=== PATIENT | female | born 1960 | race American Indian/Alaskan Native ===

== ENCOUNTER 2017-07-03 15:59 | Emergency (ER) | payer MEDICAID ==
[2017-07-03 16:42] VITALS: TEMP 98.2; O2SAT 98
--- NOTE | 2017-07-03 17:08 | ED PDOC ---
Arrival/HPI <Toan Cordova - Last Filed: 07/03/17 18:39> - History of Present Illness Time/Duration: < week Symptom Onset: Sudden Symptom Course: Unchanged Activities at Onset: Rest Context: Home <Boyd Jacinto - Last Filed: 07/03/17 18:48> - General Chief Complaint: Cough, Cold, Congestion Time Seen by Provider: 07/03/17 16:20 - History of Present Illness Narrative History of Present Illness (Text): 07/03/17 17:02 56yo F with no PMH presents with a "feeling of falling" x2 days. pt denies chest pain, sob, n/v/d, fevers/chills, urinary/bowel changes . pt states that she has family members who have been diagnosed with vertigo, but she has not had these problems. pt gives example of sitting a non-moving car and feeling that she is moving. pt denies unstable gait. PMD is Dr. Allen but patient has not seen doctor before. pt smokes 1/2 pk tobacco per day, etoh or substance abuse. (Boyd Jacinto) Past Medical History - Provider Review Nursing Documentation Reviewed: Yes - Past History Past History: No Previous - Infectious Disease Hx of Infectious Diseases: None - Reproductive Menopause: Yes - Past Medical History Past Medical History: No Previous - Cardiac Hx Cardiac Disorders: No - Pulmonary Hx Respiratory Disorders: No - Neurological Hx Neurological Disorder: No - HEENT Hx HEENT Disorder: No - Renal Hx Renal Disorder: No - Endocrine/Metabolic Hx Endocrine Disorders: No - Hematological/Oncological Hx Blood Disorders: No - Integumentary Hx Dermatological Disorder: No - Musculoskeletal/Rheumatological Hx Musculoskeletal Disorders: No - Gastrointestinal Hx Gastrointestinal Disorders: No - Genitourinary/Gynecological Hx Genitourinary Disorders: No - Psychiatric Hx Psychophysiologic Disorder: No Hx Substance Use: No - Past Surgical History Past Surgical History: No Previous - Anesthesia Hx Anesthesia: No <Boyd Jacinto - Last Filed: 07/03/17 18:48> Family/Social History - Physician Review Nursing Documentation Reviewed: Yes Family/Social History: No Known Family HX Smoking Status: Unknown If Ever Smoked Hx Alcohol Use: No Hx Substance Use: No <Boyd Jacinto - Last Filed: 07/03/17 18:48> Allergies/Home Meds <Toan Cordova - Last Filed: 07/03/17 18:39> <Boyd Jacinto - Last Filed: 07/03/17 18:48> Allergies/Adverse Reactions: Allergies No Known Allergies Allergy (Verified 07/03/17 16:40) Review of Systems - Physician Review All systems were reviewed & negative as marked: Yes - Review of Systems Respiratory: absent: SOB Cardiovascular: absent: Chest Pain, Syncope Gastrointestinal: absent: Abdominal Pain Genitourinary Female: absent: Dysuria Musculoskeletal: absent: Neck Pain Neurological: Other (feeling of falling). absent: Headache, Dizziness, Focal Weakness, Gait Changes, Facial Droop <Boyd Jacinto - Last Filed: 07/03/17 18:48> Physical Exam Vital Signs Reviewed: Yes Appearance: Positive for: Well-Appearing Pain Distress: None Mental Status: Positive for: Alert and Oriented X 3 - Systems Exam Head: Present: Atraumatic, Normocephalic Pupils: Present: PERRL Extroacular Muscles: Present: EOMI Conjunctiva: Present: Normal Mouth: Present: Moist Mucous Membranes Neck: Present: Normal Range of Motion Respiratory/Chest: Present: Clear to Auscultation, Good Air Exchange Cardiovascular: Present: Regular Rate and Rhythm, Normal S1, S2 Abdomen: Present: Normal Bowel Sounds. No: Tenderness, Distention Upper Extremity: Present: Normal Inspection, Normal ROM, Neurovascularly Intact. No: Edema Lower Extremity: Present: Normal Inspection, NORMAL PULSES, Normal ROM, Neurovascularly Intact. No: Edema Neurological: Present: CN II-XII Intact, Speech Normal, Motor Func Grossly Intact, Normal Sensory Function, Normal Cerebellar Funct, Gait Normal Skin: Present: Warm, Dry Psychiatric: Present: Alert, Oriented x 3 <Boyd Jacinto - Last Filed: 07/03/17 18:48> Vital Signs Temp Pulse Resp BP Pulse Ox 07/03/17 17:12 69 18 122/71 98 07/03/17 16:41 98.2 F 72 18 124/75 98 Medical Decision Making - RAD Interpretation Wrapping Machine Tender: Radiologist <Toan Cordova - Last Filed: 07/03/17 18:39> Re-evaluation Time: 18:46 Reassessment Condition: Re-examined, Improved - Lab Interpretations I have reviewed the lab results: Yes - RAD Interpretation Wrapping Machine Tender: Radiologist - EKG Interpretation Interpreted by ED Physician: Yes Type: 12 lead EKG <Boyd Jacinto - Last Filed: 07/03/17 18:48> ED Course and Treatment: 07/03/17 17:55 Seen and examined with the resident. Our history and physical exam reveals a woman who complains of not feeling right and feeling off balance for the last several days. No headache. No numbness tingling or paresthesias. No focal weakness. No nausea or vomiting. No head trauma. No neck pain. No true vertigo. Her exam including neurological exam is within normal limits. 07/03/17 18:21 EKG shows normal sinus rhythm rate approximately [address] or T-wave changes (Toan Cordova) 07/03/17 17:11 Impression: 56yo F presenting with neurological symptoms x2 days Plan: -CT head - EKG - Labs Progress: 07/03/17 18:29 EKG shows NSR @[address] or T-wave changes 07/03/17 18:46 CT head was unremarkable as read by me Reassessment: pt doing well and offering no complaints. Lab and urine findings were explained to her and she was told that she would be contacted if urine cultures findings are alarming. otherwise, pt is medically stable, ambulating well and cleared for d/c (Boyd Jacinto) - Lab Interpretations Lab Results: 07/03/17 17:15 07/03/17 17:15 Lab Results 07/03/17 17:15: Sodium 141, Potassium 4.1, Chloride 104, Carbon Dioxide 26, Anion Gap 15, BUN 17, Creatinine 0.8, Est GFR ( Amer) > 60, Est GFR (Non- Af Amer) > 60, Random Glucose 107, Calcium 9.9, Phosphorus 3.9, Magnesium 2.1, Total Bilirubin 0.8, AST 22, ALT 34, Alkaline Phosphatase 115, Lactate Dehydrogenase 438, Total Creatine Kinase 157, Troponin I < 0.01, Total Protein 8.4 H, Albumin 4.8, Globulin 3.6, Albumin/Globulin Ratio 1.3 07/03/17 17:15: WBC 9.9, RBC 4.15, Hgb 12.4, Hct 37.8, MCV 91.1, MCH 29.9, MCHC 32.8, RDW 14.2, Plt Count 322, MPV 10.1, Gran % 51.4, Lymph % (Auto) 39.0 H, [place] % (Auto) 5.5, Eos % (Auto) 3.9, Baso % (Auto) 0.2, Gran # 5.07, Lymph # 3.9 H, [place] # 0.5, Eos # 0.4, Baso # 0.02 07/03/17 16:59: Urine Color Yellow, Urine Appearance Sl cloudy, Urine pH 6.0, Ur Specific Circle 1.020, Urine Protein Negative, Urine Glucose (UA) Negative, Urine Ketones Negative, Urine Blood Negative, Urine Nitrate Positive H, Urine Bilirubin Negative, Urine Urobilinogen 0.2, Ur Leukocyte Esterase Small H, Urine RBC 0 - 2, Urine WBC 10 - 15, Ur Epithelial Cells 1 - 3, Urine Bacteria Many - RAD Interpretation Radiology Orders: 07/03/17 17:00 HEAD W/O CONTRAST [CT] Stat CT scan of the head as read by the radiologist shows no acute findings. ( Toan Cordova) Disposition/Present on Arrival - Present on Arrival Any Indicators Present on Arrival: No History of DVT/PE: No History of Uncontrolled Diabetes: No Urinary Catheter: No History of Decub. Ulcer: No - Disposition Have Diagnosis and Disposition been Completed?: Yes Disposition Time: 18:40 Patient Plan: Discharge <Toan Cordova - Last Filed: 07/03/17 18:39> - Present on Arrival Any Indicators Present on Arrival: No History of DVT/PE: No History of Uncontrolled Diabetes: No Urinary Catheter: No History of Decub. Ulcer: No History Surgical Site Infection Following: None - Disposition Have Diagnosis and Disposition been Completed?: Yes <Boyd Jacinto - Last Filed: 07/03/17 18:48> - Disposition Diagnosis: UTI (urinary tract infection), Dizziness Patient Problems: Current Active Problems Problem Status Onset Dizziness Acute UTI (urinary tract infection) Acute Condition: GOOD Discharge Instructions (ExitCare): Urinary Tract Infection in Women (ED), Dizziness (ED) Additional Instructions: Follow-up with your PMD. Follow-up in the ER as needed. Urine culture is pending. Prescriptions: Sulfamethoxazole/Trimethoprim [Bactrim DS 800 mg-160 mg] 1 tab PO BID #6 tab Referrals: PCP,NO [Primary Care Provider] - Follow up with primary Alejandro,Sridevi, MD [Staff Provider] - Follow up with primary Forms: [employer] (Polish)
[2017-07-03 17:25] LABS: BASO # 0.02 K/mm3 (0.0-2.0); BASO % 0.2 % (0.0-3.0); EOS # 0.4 (0.0-0.7); EOS % 3.9 % (1.5-5.0); GRAN # 5.07 (1.4-6.5); GRAN % 51.4 % (50.0-68.0); HEMATOCRIT 37.8 % (36.0-48.0); LYMPH # 3.9 (1.2-3.4); MEAN CELL VOLUME 91.1 fl (80.0-105.0); MEAN CORPUSCULAR HEMOGLOBIN 29.9 pg (25.0-35.0); MEAN CORPUSCULAR HGB CONC 32.8 g/dl (31.0-37.0); MEAN PLATELET VOLUME 10.1 fl (7.0-11.0); MONO # 0.5 (0.1-0.6); MONO % 5.5 % (1.0-6.0); RED CELL DISTRIBUTION WIDTH 14.2 % (11.5-14.5); WHITE BLOOD COUNT 9.9 10^3/ul (4.5-11.0)
[2017-07-03 17:34] LABS: ALB/GLOB RATIO 1.3 (1.1-1.8); ALKALINE PHOSPHATASE 115 U/L (38-126); ALT/SGPT 34 U/L (7-56); AST/SGOT 22 U/L (14-36); BILIRUBIN,TOTAL 0.8 mg/dL (0.2-1.3); BLOOD UREA NITROGEN 17 mg/dL (7-21); CALCIUM 9.9 mg/dL (8.4-10.5); CARBON DIOXIDE 26 mmol/L (21-33); CHLORIDE 104 mmol/L (98-107); GFR AFRICAN-AMERICAN > 60; GLUCOSE,RANDOM 107 mg/dL (70-110); MAGNESIUM 2.1 mg/dL (1.7-2.2); PHOSPHOROUS 3.9 mg/dL (2.5-4.5); POTASSIUM 4.1 mmol/L (3.6-5.0); SODIUM 141 mmol/L (132-148); TOTAL PROTEIN 8.4 g/dL (5.8-8.3)
[2017-07-03 17:46] LABS: TROPONIN I < 0.01 ng/mL
[2017-07-03 17:49] LABS: URINE BILIRUBIN NEGATIVE (NEGATIVE); URINE BLOOD NEGATIVE (NEGATIVE); URINE GLUCOSE (UA) NEGATIVE (NEGATIVE); URINE KETONE NEGATIVE (NEGATIVE); URINE LEUKOCYTE ESTERASE SMALL Leu/uL (NEGATIVE); URINE PROTEIN NEGATIVE mg/dL (<30 mg/dL); URINE UROBILINOGEN 0.2 E.U./dL (<1 E.U./dL)
[2017-07-03 17:57] LABS: URINE APPEARANCE SL CLOUDY (CLEAR); URINE COLOR YELLOW (YELLOW)
[2017-07-03 18:25] LABS: URINE RBC 0 - 2 /hpf (0-2)
[2017-07-03 18:26] LABS: URINE BACTERIA MANY (NEG)
--- NOTE | 2017-07-03 18:36 | CT ---
PROCEDURE: CT HEAD WITHOUT CONTRAST. HISTORY: dizziness COMPARISON: None available. TECHNIQUE: Axial computed tomography images were obtained through the head/brain without intravenous contrast. Radiation dose: Total exam DLP = 941.65 mGy-cm. This CT exam was performed using one or more of the following dose reduction techniques: Automated exposure control, adjustment of the mA and/or kV according to patient size, and/or use of iterative reconstruction technique. FINDINGS: HEMORRHAGE: No intracranial hemorrhage. BRAIN: No mass effect or edema. No atrophy or chronic microvascular ischemic changes. VENTRICLES: Unremarkable. No hydrocephalus. CALVARIUM: Unremarkable. PARANASAL SINUSES: Unremarkable as visualized. No significant inflammatory changes. MASTOID AIR CELLS: Unremarkable as visualized. No inflammatory changes. OTHER FINDINGS: None. IMPRESSION: No acute intracranial abnormalities. No significant findings to account for the clinical presentation.
--- NOTE | 2017-07-03 21:58 | CARD ---
APPROVED REPORT EKG Measurement Heart [id number] <Conclusion> Normal sinus rhythm Minimal voltage criteria for LVH, may be normal variant Borderline ECG
[2017-07-03 23:51] VITALS: BP 124/78; PULSE 72; RESP 16
== END 2017-07-03 18:57 | disposition home or self-care (01) ==
LOC: ED 15:59
DX: N39.0 Urinary tract infection, site not specified (principal); R42 Dizziness and giddiness